=== PATIENT | female | born 2000 | race Two or more races ===

== ENCOUNTER 2023-09-12 09:55 | Emergency (ER) | payer OTHER ==
[~2023-09-12] VITALS: Ht 144.8 cm; Wt 42.6 kg
[2023-09-12 10:19] VITALS: BP 113/70; TEMP 99
[2023-09-12] MEDS ORDERED: IBUPROFEN 400 MG TABLET ONE (11:42)
[2023-09-12] MEDS ORDERED: ONDANSETRON 4 MG TAB.RAPDIS ONE (11:42)
[2023-09-12] MEDS: ONDANSETRON 4 MG TAB.RAPDIS SL ONE (11:50)
[2023-09-12] MEDS: IBUPROFEN 400 MG TABLET PO ONE (11:50)
[2023-09-12] MEDS ORDERED: ONDA4TAB5 PO (11:52)
[2023-09-12] MEDS ORDERED: IBUP-2314 PO (11:52)
[2023-09-12 12:13] VITALS: O2SAT 98
== END 2023-09-12 12:14 | disposition home or self-care (01) ==
LOC: ER 09:55
DX: S16.1XXA Strain of muscle, fascia and tendon at neck level, initial encounter (principal); S09.90XA Unspecified injury of head, initial encounter; V32.6XXA Passenger in three-wheeled motor vehicle injured in collision with two- or three-wheeled motor vehicle in traffic accident, initial encounter; Y93.89 Activity, other specified; Y92.89 Other specified places as the place of occurrence of the external cause; Y99.8 Other external cause status
CPT/HCPCS: 99284; 72125; 70450; Q0162

== ENCOUNTER 2024-02-19 15:11 | Emergency (ER) | payer OTHER ==
[~2024-02-19] VITALS: Ht 142.2 cm; Wt 42.6 kg
[~2024-02-19 15:11] MED LIST: IBUP-2314 PO; ONDA4TAB5 PO
[2024-02-19 15:17] VITALS: BP 119/76; TEMP 97.9; O2SAT 99
[2024-02-19] MEDS ORDERED: IBUPROFEN 400 MG TABLET ONE (15:32)
[2024-02-19] MEDS: IBUPROFEN 400 MG TABLET PO ONE (15:34)
== END 2024-02-19 16:29 | disposition home or self-care (01) ==
LOC: ER 15:13
DX: S60.221A Contusion of right hand, initial encounter (principal); Z79.1 Long term (current) use of non-steroidal anti-inflammatories (NSAID); Z79.899 Other long term (current) drug therapy; X58.XXXA Exposure to other specified factors, initial encounter; Y93.89 Activity, other specified; Y92.89 Other specified places as the place of occurrence of the external cause; Y99.8 Other external cause status
CPT/HCPCS: 73130-TC